=== PATIENT | female | born 1995 | race Caucasian/White ===

== ENCOUNTER 2016-09-23 11:43 | Day surgery (SDC) | payer OTHER ==
[2016-09-20 11:23] LABS: HEMATOCRIT 44.5 % (36.0-47.0); HEMOGLOBIN 14.6 g/dL (12.0-15.5); HGB HCT DIFFERENCE -0.7; MEAN CORPUSCULAR HGB CONC 32.9 g/dL (32.0-36.0); MEAN CORPUSCULAR VOLUME 82 fl (80-97); RED BLOOD COUNT 5.43 10^6/uL (3.72-5.28); RED CELL DISTRIBUTION WIDTH 16.7 % (11.5-14.0); WHITE BLOOD COUNT 6.1 10^3/uL (4.0-10.5)
[2016-09-20 11:39] LABS: APPEARANCE,URINE SLIGHTLY-CLOUDY; BILIRUBIN,URINE NEGATIVE (NEGATIVE); GLUCOSE, URINE NEGATIVE (NEGATIVE); KETONES,URINE NEGATIVE (NEGATIVE); LEUKOCYTE ESTERASE,URINE MODERATE (NEGATIVE); NITRITE,URINE NEGATIVE (NEGATIVE); PROTEIN,URINE 30 mg/dL (NEGATIVE); URINE SPECIFIC GRAVITY 1.029; UROBILINOGEN,URINE NEGATIVE mg/dL (<2.0)
[2016-09-20 11:50] LABS: ALANINE AMINOTRANSFERASE 35 U/L (9-52); ALBUMIN 4.7 g/dL (3.5-5.0); ALKALINE PHOSPHATASE 93 U/L (38-126); ANION GAP 11 (5-19); ASPARTATE AMINO TRANSFERASE 20 U/L (14-36); BILIRUBIN,TOTAL 1.6 mg/dL (0.2-1.3); BLOOD UREA NITROGEN 13 mg/dL (7-20); CALCIUM 9.9 mg/dL (8.4-10.2); CARBON DIOXIDE 26 mmol/L (22-30); CHLORIDE 104 mmol/L (98-107); CREATININE RESULT 0.74 mg/dL (0.52-1.25); GLUCOSE 85 mg/dL (75-110); POTASSIUM 4.1 mmol/L (3.6-5.0); SODIUM 141.3 mmol/L (137-145); TOTAL PROTEIN 7.2 g/dL (6.3-8.2)
[~2016-09-23 11:43] MED LIST: LIDOCAINE 0.5% INJ-PF (5 MG/ML) 50 ML SDV IV PRN; RINGERS SOLUTION,LACTATED 1,000 ML IV PRN
[2016-09-23] MEDS ORDERED: LIDOCAINE 1% INJ-PF (10 MG/ML) 30 ML SDV ONE (12:25)
[2016-09-23] MEDS ORDERED: METHYLERGONOVINE MALEATE INJ/PF 0.2 MG/1 ML AMPULE ONE (12:26)
[2016-09-23] MEDS ORDERED: HYDROMORPHONE HCL INJ/PF 2 MG/ML AMPULE ONE (12:32)
[2016-09-23] MEDS ORDERED: PROPOFOL INJ 200 MG/20 ML VIAL IV ONE (12:33)
[2016-09-23] MEDS ORDERED: MIDAZOLAM 2 MG/2 ML INJ ONE (12:33)
[2016-09-23] MEDS: GABAPENTIN 400 MG CAPSULE PO PRN ×2 (12:45→12:46)
[2016-09-23] MEDS ORDERED: ESTROGENS,CONJUGATED 0.625 MG/1 GM 30 GM TUBE ONE (13:28)
[2016-09-23] MEDS ORDERED: DIPHENHYDRAMINE HCL 50 MG/ML VIAL IV PRN (13:29)
[2016-09-23] MEDS ORDERED: FENTANYL CITRATE INJ/PF 100 MCG/2 ML AMPUL IV PRN ×3 (13:29)
[2016-09-23] MEDS ORDERED: PROMETHAZINE HCL INJ 25 MG/1 ML VIAL IV PRN ×2 (13:29)
[2016-09-23] MEDS ORDERED: MEPERIDINE HCL/PF INJ 25 MG/1 ML DISP.SYRIN IV PRN (13:29)
[2016-09-23] MEDS ORDERED: MORPHINE SULFATE 10 MG/ML INJ IV PRN (13:29)
[2016-09-23] MEDS ORDERED: OXYCODONE-ACETAMINOPHEN 5-325 MG TABLET PO PRN ×3 (13:29→14:51)
--- NOTE | 2016-09-23 13:43 | PDOC DISCHARGE SUMMARY ---
Discharge Summary (SDC) - Discharge Final Diagnosis: vaginal septum tissue Date of Surgery: 09/23/16 Discharge Date: 09/23/16 Condition: Good Forms: Post Operative Treatment or Instructions: Resection of vaginal septum Referrals: LYNN FLORES MD [NO LOCAL MD] - (Call the OB clinic or the PHYSICAL THERAPY PROFESSOR nurse at [phone] to schedule a 4-6week follow up appt. or with any questions or concerns ) Discharge Diet: As Tolerated Respiratory Treatments at Home: Deep Breathing/Coughing Discharge Activity: Activity As Tolerated, Pelvic Rest, Slowly Increase Activity , No tub bath - you may shower Home Care Assistance: None Needed Report the Following to Your Physician Immediately: Vomiting, Increase in Pain, Fever over 101 Degrees, Drainage-Foul Smelling, Increased Vaginal Bleed
[2016-09-23] MEDS ORDERED: ONDANSETRON HCL INJ/PF 4 MG/2 ML SDV IV PRN (14:51)
[2016-09-23 16:15] VITALS: BP 117/74
--- NOTE | 2016-09-24 14:53 | OPERATIVE REPORT E ---
Operative Report NAME: ANDI LIMA : 1995 AGE: 21Y DATE OF SURGERY: 09/23/2016 ROOM: PREOPERATIVE DIAGNOSIS: HISTORY OF VAGINAL SEPTUM. POSTOPERATIVE DIAGNOSIS: HISTORY OF VAGINAL SEPTUM. OPERATION: Vaginal septum resection and repair. SURGEON: LYNN FLORES M.D. ANESTHESIA: General endotracheal anesthesia. COMPLICATIONS: None. ESTIMATED BLOOD LOSS: 50 mL. URINE OUTPUT: Clear on straight cath at the beginning of the procedure, 50 mL. SPECIMENS: Vaginal septal tissue. FINDINGS: A longitudinal piece of vaginal septum remnant tissue along the left anterior wall of the vagina and extending about approximately two thirds the distance into the vagina from the enteritis. The septum had previously been torn during her two subsequent vaginal deliveries. INDICATIONS: The risks, benefits and alternatives of the procedure were discussed with the patient including but not limited to infection, allergic reaction, scar, blood loss, injury to surrounding tissues, need for a second operation or other indicated procedure. Alternatives included but not limited to observation were discussed with the patient and she consented to the above procedure. PROCEDURE: The patient was taken to the operating room where general anesthesia was undertaken. She was prepped and draped in the usual sterile fashion in the dorsal lithotomy position and adjustable Myles stirrups. A surgical timeout was held. An in-and-out straight catheter was used to drain the bladder. Upon vaginal exam, the area of the septal tissue was noted. This tissue was infiltrated with 1% lidocaine local anesthetic 3 mL. A Britt clamp was used to clamp the margin of the septum near the vaginal wall. While the clamp was in place, Metzenbaum scissors were used to remove the septal tissue. After removal of the Britt clamp, the incision had very minimal bleeding. At this time, a 3-0 Vicryl suture was used in a running/walking fashion to close the incision. Hemostasis was noted to be excellent. There was no bruising or formation of rectovaginal mucosa hematoma. The vagina was irrigated and Premarin cream was applied to the area of the incision. At the end of the procedure, hemostasis was excellent, normal, anatomy appeared to be restored upon inspection and examination. Sponge and instrument counts were correct at the end of the procedure. Specimen sent to Pathology and the patient was taken to recovery in stable condition. DICTATING PHYSICIAN: LYNN FLORES M.D. [id number] PHY#: [id number] ID: [id number] JOB#: [id number] ACCT: [id number] cc:LYNN FLORES M.D. >
== END 2016-09-23 16:10 | disposition home or self-care (01) ==
LOC: OROUT 11:43
PROVIDERS: ATTEND Obstetrics & Gynecology
PROC: 0UTG0ZZ Resection of Vagina, Open Approach (ICD-10-PCS; principal; 2016-09-23 13:30)
DX: Q52.11 Transverse vaginal septum (principal)
CPT/HCPCS: 86900; 86901; 36415 ×2; 86850; 85027; 81025; 80053; 81001; 88304 ×2; 57130; J2250; J3490 ×2; J1170; J2704; 940; J2210